=== PATIENT | female | born 1955 | race Caucasian/White ===

== ENCOUNTER 2018-10-30 23:50 | Emergency (ER) | payer BC, OTHER ==
[~2018-10-30] VITALS: Ht 157.5 cm; Wt 85.7 kg
--- NOTE | 2018-10-30 23:50 | NUR ---
PATIENT ADMITTED TO BY EMS VIA GURNEY WITH CHIEF COMPLAINT OF TAKING EDIBLE MARIJUANA. PATIENT EXPERIENCING HEADACHE, DRY MOUTH, NAUSEA AND VOMITTING,SHAKINESS. PATIENT [id number], ABLE TO FOLLOW COMMAND.V/ S TAKEN AND RECORDED. PATIENT CONNECTED TO MONITOR. EXPLAINED PLAN OF CARE.WILL CONTINUE TO MONITOR.
--- NOTE | 2018-10-30 23:50 | NUR ---
PT JV BLS. TAKEN TO BED 10
[2018-10-30 23:56] VITALS: BP 195/68
[2018-10-31] MEDS ORDERED: NACL 0.9% 1,000 ML IV ONE (00:20)
[2018-10-31] MEDS ORDERED: ONDANSETRON 4 MG/2 ML VIAL IVP ONE (00:20)
[2018-10-31] MEDS ORDERED: ONDANSETRON 4 MG/2 ML VIAL ONE (00:28)
--- NOTE | 2018-10-31 00:29 | NUR ---
IVF/IVP MEDS GIVEN-NADR AT THIS TIME
--- NOTE | 2018-10-31 01:31 | NUR ---
Dr. Palm evaluating patient at bedside.
[2018-10-31 02:16] VITALS: BP 132/60
== END 2018-10-31 02:15 | disposition home or self-care (01) ==
LOC: MED 23:50
DX: R11.2 Nausea with vomiting, unspecified (principal); F41.9 Anxiety disorder, unspecified; I10 Essential (primary) hypertension; E03.9 Hypothyroidism, unspecified; Z88.5 Allergy status to narcotic agent
CPT/HCPCS: 96361; 96374; 99283; J2405; J7030

== ENCOUNTER 2022-10-26 19:24 | Emergency (ER) | payer OTHER ==
[~2022-10-26] VITALS: Ht 157.5 cm; Wt 82.6 kg
[2022-10-26 19:24] VITALS: BP 185/103
--- NOTE | 2022-10-26 19:43 | NUR ---
PT JV BLS. TAKEN TO BED 8
[2022-10-26] MEDS ORDERED: KETOROLAC 15 MG/ML VIAL IM ONE (20:35)
[2022-10-26] MEDS ORDERED: ONDANSETRON 4 MG ODT PO ONE (20:35)
[2022-10-26] MEDS ORDERED: ONDANSETRON 4 MG ODT ONE (21:41)
[2022-10-26] MEDS ORDERED: KETOROLAC 15 MG/ML VIAL ONE (21:42)
[2022-10-26] MEDS ORDERED: LID5T TP (22:05)
[2022-10-26] MEDS ORDERED: IBUP-2213 PO (22:05)
[2022-10-26 22:22] VITALS: BP 142/76
--- NOTE | 2022-10-26 22:22 | NUR ---
Patient discharged with v/s stable. Written and verbal after care instructions given and explained. Patient alert, oriented and verbalized understanding of instructions. Ambulatory with steady gait. All questions addressed prior to discharge. ID band removed. Patient advised to follow up with PMD. Rx of IBUPROFEN, LIDODERM given. Patient educated on indication of medication including possible reaction and side effects. Opportunity to ask questions provided and answered.
== END 2022-10-26 22:22 | disposition home or self-care (01) ==
LOC: MED 19:24
DX: S16.1XXA Strain of muscle, fascia and tendon at neck level, initial encounter (principal); S40.012A Contusion of left shoulder, initial encounter; I10 Essential (primary) hypertension; E03.9 Hypothyroidism, unspecified; Z79.899 Other long term (current) drug therapy; Z79.1 Long term (current) use of non-steroidal anti-inflammatories (NSAID); Z88.5 Allergy status to narcotic agent; V89.2XXA Person injured in unspecified motor-vehicle accident, traffic, initial encounter; Y93.89 Activity, other specified; Y92.410 Unspecified street and highway as the place of occurrence of the external cause; Y99.8 Other external cause status
CPT/HCPCS: 71045; 73030; 96372; 99284; J1885; Q0092; Q0162